=== PATIENT | female | born 1995 | race Caucasian/White ===

== ENCOUNTER 2020-01-03 15:57 | Emergency (ER) | payer OTHER ==
[~2020-01-03] VITALS: Ht 165.1 cm; Wt 59.1 kg
[2020-01-03 16:03] VITALS: BP 112/68
== END 2020-01-03 17:10 | disposition home or self-care (01) ==
LOC: EMS 15:57
DX: R05 Cough (principal); J02.9 Acute pharyngitis, unspecified; Z03.818 Encounter for observation for suspected exposure to other biological agents ruled out; Z88.8 Allergy status to other drugs, medicaments and biological substances
CPT/HCPCS: 99283; U0003